=== PATIENT | female | born 1960 | race Caucasian/White ===

== ENCOUNTER 2017-10-09 13:15 | Emergency (ER) | payer OTHER ==
[~2017-10-09] VITALS: Ht 160 cm; Wt 79.0 kg
[2017-10-09 13:17] VITALS: BP 131/78; PULSE 77; RESP 18; TEMP 98.4; O2SAT 97
[2017-10-09] MEDS ORDERED: LIDOCAINE 2%/EPINEPHrine 1:100,000 20ML MDV NERV BLOCK ONE (13:45)
[2017-10-09] MEDS ORDERED: TETANUS/DIPHTHERIA TOXOID ADULT 0.5 ML VIAL IM ONE (14:00)
--- NOTE | 2017-10-09 14:40 | PD ---
HPI Chief Complaint: Laceration/Skin Injury Time Seen by Provider: 13:35 Travel History International Travel<30 days: No Contact w/Intl Traveler<30days: No Traveled to known affect area: No History of Present Illness HPI 57-year-old female presents to the emergency with accidental laceration to the left lower lateral collado. 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 She is unsure of her last tetanus shot. She is complaining of no pain. Bleeding was controlled with home bandage consisting of paper towel and tape. She has no known drug allergies. [facility] Social History Alcohol Use: Yes Tobacco Use: No Substance Use: No Allergies-Medications (Allergen,Severity, Reaction): Coded Allergies: No Known Allergies (Unverified , 10/09/17) Reported Meds & Prescriptions Reported Meds & Active Scripts Active Review of Systems Except as stated in HPI: all other systems reviewed are Neg General / Constitutional: No: Fever Eyes: No: Visual changes HENT: No: Headaches Cardiovascular: No: Chest Pain or Discomfort Respiratory: No: Shortness of Breath Gastrointestinal: No: Abdominal Pain Genitourinary: No: Dysuria Musculoskeletal: No: Pain Skin: Positive Lesions, No Rash Neurologic: No: Weakness Psychiatric: No: Depression Endocrine: No: Polydipsia Hematologic/Lymphatic: No: Easy Bruising Physical Exam Narrative GENERAL: Patient appears in no acute distress. SKIN: Warm and dry. Patient has a 9 cm linear full-thickness laceration to the left posterior lateral collado. It does not involve the underlying muscle, tendons or nerves. Neurovascular exam is normal distally. HEAD: Atraumatic. Normocephalic. EYES: Pupils equal and round. No scleral icterus. No injection or drainage. ENT: No nasal bleeding or discharge. Mucous membranes pink and moist. Pharynx is clear. Airway is patent. NECK: Trachea midline. No JVD. CARDIOVASCULAR: Regular rate and rhythm. RESPIRATORY: No accessory muscle use. Clear to auscultation. Breath sounds equal bilaterally. GASTROINTESTINAL: Abdomen soft, non-tender, nondistended. Hepatic and splenic margins not palpable. MUSCULOSKELETAL: Extremities without clubbing, cyanosis, or edema. No obvious deformities. NEUROLOGICAL: Awake and alert. No obvious cranial nerve deficits. Motor grossly within normal limits. Five out of 5 muscle strength in the arms and legs. Normal speech. PSYCHIATRIC: Appropriate mood and affect; insight and judgment normal. Data Data Last Documented VS Vital Signs Date Time Temp Pulse Resp B/P (MAP) Pulse Ox O2 Delivery O2 Flow Rate FiO2 10/09/17 13:17 98.4 77 18 131/78 (95) 97 Room Air Orders Orders Lidocai-Epi 2%-1:100,000 Inj (Xylocaine- (10/09/17 13:45) Tetanus/Diphtheria Tox Adult (Tetanus/Di (10/09/17 14:00) MDM Medical Decision Making Medical Screen Exam Complete: Yes Emergency Medical Condition: Yes Differential Diagnosis Accidental laceration. Need for sutures. Wound closure. Tetanus. Narrative Course Laceration is closed. Wound care is discussed with the patient. Tetanus was given IM. Patient should leave sutures in place for the next 2 weeks. Patient to follow-up for suture removal at that time or sooner as needed. Procedures Procedure Narrative LACERATION LOCATION: Left lateral lower leg LENGTH: 9 cm NUMBER OF STITCHES/CRISPIN: 5 interrupted vertical mattress, 6 interrupted horizontal mattress, one simple suture. REPAIR: The area of the laceration was prepped with Betadine and sterilely draped. The laceration was infiltrated with 6 mL 2% lidocaine with epi. The wound was copiously irrigated and explored without evidence of foreign body, tendon injury or neurovascular injury. The wound was closed using 5-0 Prolene. This was a single layer repair. A sterile dressing was applied. The patient was advised to keep the dressing clean and dry. Patient tolerated the procedure well. Diagnosis Primary Impression: Laceration of left lower leg without complication Qualified Codes: S81.812A - Laceration without foreign body, left lower leg, initial encounter Referrals: Primary Care Physician Patient Instructions: Care For Your Stitches (ED), General Instructions Additional Instructions: Wound care is discussed with the patient. Tetanus was given IM. Patient should leave sutures in place for the next 2 weeks. Patient to follow-up for suture removal at that time or sooner as needed. Med/Other Pt SpecificInfo: Wound Care Disposition: 01 DISCHARGE HOME Condition: Stable Jim Sunshine Oct 09, 2017 14:40
== END 2017-10-09 14:58 | disposition home or self-care (01) ==
LOC: NEPK 13:15
DX: S81.812A Laceration without foreign body, left lower leg, initial encounter (principal); W25.XXXA Contact with sharp glass, initial encounter; Z23 Encounter for immunization
CPT/HCPCS: 12004; 90471; 90714